=== PATIENT | female | born 1945 | race Caucasian/White ===

== ENCOUNTER 2025-01-18 15:32 | Inpatient (IN) | payer OTHER ==
[2025-01-18 16:57] LABS: ABSOLUTE IMMATURE GRANULOCYTES 0.04 x10^3/uL (0.0-0.031); BASOPHILS # 0.07 x10^3/uL (0.01-0.08); EOSINOPHIL % 7.3 % (0.7-5.8); EOSINOPHILS # 0.68 x10^3/uL (0.04-0.36); MCHC 31.6 g/dl (32.2-35.5); MEAN CELL VOLUME 88.1 fl (79.4-94.8); MEAN PLT VOLUME 10.9 fl (9.4-12.3); MONOCYTE # 0.48 x10^3/uL (0.24-0.86); MONOCYTE % 5.2 % (4.7-12.5); RDW 12.8 % (12.4-16.6)
[2025-01-18 17:17] LABS: GLUCOSE,RANDOM 85 mg/dL (74-106); TOT PROT 8.1 g/dl (6.4-8.2)
[2025-01-18 17:18] LABS: CO2 24 mmol/L (21-32)
[2025-01-18 17:20] LABS: ALK PHOS 61 U/L (40-150)
[2025-01-18 17:23] LABS: CREATININE 0.49 mg/dL (0.55-1.3); SGOT/AST 43 U/L (5-34)
[2025-01-18] MEDS ORDERED: PIPERACILLIN/TAZOB 3.375 GM 3.375 GM/50 ML BAG IVPB ONE (17:34)
[2025-01-18] MEDS: PIPERACILLIN/TAZOB 3.375 GM 3.375 GM in DEXTROSE 5%-WATER - 50 ML IVPB ONE (17:37)
[2025-01-18 17:40] LABS: SGPT/ALT < 6 U/L (0-55)
[2025-01-18 17:43] LABS: HCV DIAGNOSTIC IN-HOUSE W/RFLX NON-REACTIVE (NONREACTIVE)
[2025-01-18 17:44] LABS: HIV INTERPRETATION NEGATIVE (NEGATIVE)
[2025-01-18] MEDS ORDERED: VANCOMYCIN 1 GM PREMIX (F) 1 GM/200 ML BAG ONE (18:11)
[2025-01-18] MEDS: VANCOMYCIN 1,000 MG in DEXTROSE 5%-WATER - 250 ML IVPB ONE (18:12)
[2025-01-19 00:25] VITALS: BMI 29.5
[2025-01-19] MEDS: PIPERACILLIN/TAZOB 3.375 GM 3.375 GM in DEXTROSE 5%-WATER - 50 ML IVPB SCH (01:12)
[2025-01-19] MEDS: VANCOMYCIN/WATER 1250 MG 1,250 MG/250 ML BAG IVPB SCH (06:30)
[2025-01-19 07:22] LABS: ABSOLUTE IMMATURE GRANULOCYTES 0.02 x10^3/uL (0.0-0.031); BASOPHILS # 0.06 x10^3/uL (0.01-0.08); EOSINOPHIL % 8.9 % (0.7-5.8); EOSINOPHILS # 0.61 x10^3/uL (0.04-0.36); MCHC 31.3 g/dl (32.2-35.5); MEAN CELL VOLUME 88.0 fl (79.4-94.8); MEAN PLT VOLUME 10.7 fl (9.4-12.3); MONOCYTE # 0.44 x10^3/uL (0.24-0.86); MONOCYTE % 6.5 % (4.7-12.5); RDW 12.4 % (12.4-16.6)
[2025-01-19 07:38] LABS: GLUCOSE,RANDOM 81.0 mg/dL (74-106)
[2025-01-19 07:39] LABS: CO2 27.0 mmol/L (21-32)
[2025-01-19 07:44] LABS: CREATININE 0.61 mg/dL (0.55-1.3)
[2025-01-19 09:42] LABS: ERYTHROCYTE SEDIMENTATION RATE 32 mm/hr (0-30)
[2025-01-19] MEDS: ENOXAPARIN NA (PORCINE) 40 MG/0.4 ML DISP.SYRIN SQ SCH (10:14)
[2025-01-19] MEDS: CALCIUM ACETATE/AL SULFATE TOP 1.9 GM/PACKET PACKET TP SCH ×2 (12:27→18:04)
[2025-01-19 12:59] LABS: N-TERMINAL BNP 100.9 pg/mL (0-299.9)
[2025-01-20] MEDS: AMPICILLIN NA/SULBACTAM NA 3 GM in SODIUM CHLORIDE 100 ML IVPB SCH (01:08)
[2025-01-20] MEDS: LORazepam 2 MG/ML SDV VIAL IVPUSH ONE (01:09)
[2025-01-20] MEDS ORDERED: PIPERACILLIN/TAZOB 3.375 GM 3.375 GM in DEXTROSE 5%-WATER - 50 ML IVPB SCH (02:00)
[2025-01-20] MEDS ORDERED: VANCOMYCIN/WATER FOR INJ (PEG) 1,000 MG/200 ML BAG IVPB SCH (06:00)
[2025-01-20 07:59] LABS: ABSOLUTE IMMATURE GRANULOCYTES 0.03 x10^3/uL (0.0-0.031); BASOPHILS # 0.05 x10^3/uL (0.01-0.08); EOSINOPHIL % 10.4 % (0.7-5.8); EOSINOPHILS # 0.75 x10^3/uL (0.04-0.36); MCHC 30.7 g/dl (32.2-35.5); MEAN CELL VOLUME 89.3 fl (79.4-94.8); MEAN PLT VOLUME 11.2 fl (9.4-12.3); MONOCYTE # 0.51 x10^3/uL (0.24-0.86); MONOCYTE % 7.1 % (4.7-12.5); RDW 12.5 % (12.4-16.6)
[2025-01-21 07:00] LABS: ABSOLUTE IMMATURE GRANULOCYTES 0.03 x10^3/uL (0.0-0.031); EOSINOPHIL % 13.1 % (0.7-5.8)
[2025-01-21 07:10] LABS: BASOPHILS # 0.06 x10^3/uL (0.01-0.08); EOSINOPHILS # 0.77 x10^3/uL (0.04-0.36); MCHC 31.0 g/dl (32.2-35.5); MEAN CELL VOLUME 88.8 fl (79.4-94.8); MEAN PLT VOLUME 10.2 fl (9.4-12.3); MONOCYTE # 0.43 x10^3/uL (0.24-0.86); MONOCYTE % 7.3 % (4.7-12.5); RDW 12.7 % (12.4-16.6)
[2025-01-21 07:11] LABS: GLUCOSE,RANDOM 90 mg/dL (74-106); TOT PROT 6.1 g/dl (6.4-8.2)
[2025-01-21 07:12] LABS: CO2 26 mmol/L (21-32)
[2025-01-21 07:14] LABS: ALK PHOS 52 U/L (40-150)
[2025-01-21 07:17] LABS: CREATININE 0.60 mg/dL (0.55-1.3); SGOT/AST 13 U/L (5-34); SGPT/ALT < 6 U/L (0-55)
[2025-01-21] MEDS: MINERAL OIL/PET HY-PHL TOPICAL OINTMENT 454 GM JAR TP SCH (10:31)
[2025-01-22] MEDS: PIPERACILLIN/TAZOB 3.375 GM 3.375 GM in DEXTROSE 5%-WATER - 50 ML IVPB SCH (11:21)
[2025-01-22] MEDS: DOXYCYCLINE HYCLATE 100 MG TABLET PO SCH (17:05)
[2025-01-23 08:09] LABS: ABSOLUTE IMMATURE GRANULOCYTES 0.02 x10^3/uL (0.0-0.031); BASOPHILS # 0.05 x10^3/uL (0.01-0.08); EOSINOPHIL % 7.5 % (0.7-5.8); EOSINOPHILS # 0.44 x10^3/uL (0.04-0.36); MCHC 31.9 g/dl (32.2-35.5); MEAN CELL VOLUME 85.9 fl (79.4-94.8); MEAN PLT VOLUME 10.5 fl (9.4-12.3); MONOCYTE # 0.40 x10^3/uL (0.24-0.86); MONOCYTE % 6.8 % (4.7-12.5); RDW 12.3 % (12.4-16.6)
[2025-01-23 08:23] LABS: GLUCOSE,RANDOM 90 mg/dL (74-106); TOT PROT 6.5 g/dl (6.4-8.2)
[2025-01-23 08:24] LABS: CO2 25 mmol/L (21-32)
[2025-01-23 08:26] LABS: ALK PHOS 56 U/L (40-150)
[2025-01-23 08:29] LABS: CREATININE 0.57 mg/dL (0.55-1.3); SGOT/AST 20 U/L (5-34)
[2025-01-23 09:11] LABS: SGPT/ALT < 6 U/L (0-55)
[2025-01-24] MEDS: CALCIUM ACETATE/AL SULFATE TOP 1.9 GM/PACKET PACKET TP SCH (05:12)
[2025-01-24 08:42] LABS: ABSOLUTE IMMATURE GRANULOCYTES 0.05 x10^3/uL (0.0-0.031); BASOPHILS # 0.07 x10^3/uL (0.01-0.08); EOSINOPHIL % 4.8 % (0.7-5.8); EOSINOPHILS # 0.29 x10^3/uL (0.04-0.36); MCHC 31.7 g/dl (32.2-35.5); MEAN CELL VOLUME 86.3 fl (79.4-94.8); MEAN PLT VOLUME 10.2 fl (9.4-12.3); MONOCYTE # 0.47 x10^3/uL (0.24-0.86); MONOCYTE % 7.8 % (4.7-12.5); RDW 12.5 % (12.4-16.6)
[2025-01-24 08:58] LABS: GLUCOSE,RANDOM 94 mg/dL (74-106)
[2025-01-24 08:59] LABS: TOT PROT 6.4 g/dl (6.4-8.2)
[2025-01-24 09:00] LABS: CO2 26 mmol/L (21-32)
[2025-01-24 09:01] LABS: ALK PHOS 53 U/L (40-150)
[2025-01-24 09:04] LABS: CREATININE 0.67 mg/dL (0.55-1.3); SGOT/AST 22 U/L (5-34); SGPT/ALT < 6 U/L (0-55)
[2025-01-24] MEDS: SERTRALINE HCL 25 MG TABLET (FP) PO SCH (09:54)
[2025-01-24] MEDS: DONEPEZIL HCL 5 MG TABLET (FP) PO SCH (21:28)
[2025-01-25 07:53] VITALS: PULSE 56; RESP 18; TEMP 97.5
[2025-01-25 09:54] LABS: ABSOLUTE IMMATURE GRANULOCYTES 0.05 x10^3/uL (0.0-0.031); BASOPHILS # 0.08 x10^3/uL (0.01-0.08); EOSINOPHIL % 4.8 % (0.7-5.8); EOSINOPHILS # 0.31 x10^3/uL (0.04-0.36); MCHC 31.6 g/dl (32.2-35.5); MEAN CELL VOLUME 86.8 fl (79.4-94.8); MEAN PLT VOLUME 10.6 fl (9.4-12.3); MONOCYTE # 0.48 x10^3/uL (0.24-0.86); MONOCYTE % 7.4 % (4.7-12.5); RDW 12.7 % (12.4-16.6)
[2025-01-25 10:42] LABS: GLUCOSE,RANDOM 86.0 mg/dL (74-106)
[2025-01-25 10:43] LABS: TOT PROT 6.5 g/dl (6.4-8.2)
[2025-01-25 10:44] LABS: CO2 26.0 mmol/L (21-32)
[2025-01-25 10:45] LABS: ALK PHOS 54.0 U/L (40-150)
[2025-01-25 10:48] LABS: CREATININE 0.68 mg/dL (0.55-1.3); SGOT/AST 21.0 U/L (5-34); SGPT/ALT 6.0 U/L (0-55)
[2025-01-25 17:09] VITALS: BP 118/68
[2025-01-26] MEDS ORDERED: AMINO ACIDS/PROTEIN HYDROLYS 30 ML LIQUID.PKT PO SCH (08:00)
[2025-01-26] MEDS ORDERED: MULTIVITAMINS (DAILY MVI) TABLET (FP) PO SCH (10:00)
[2025-01-26] MEDS ORDERED: ASCORBIC ACID 500 MG TABLET (FP) PO SCH (10:00)
== END 2025-01-25 19:12 | DRG 603 ==
LOC: JER 15:32 → JERBED 20:56 → OBSVTOIN 20:57 → INTOOBSV 20:57 → J8W 22:49 → OBSVTOIN 01-21 13:22 → J8W 01-21 14:57
PROVIDERS: ADMIT Internal Medicine; ATTEND Internal Medicine
DX: L03.115 Cellulitis of right lower limb (principal); F03.918 Unspecified dementia, unspecified severity, with other behavioral disturbance; L97.919 Non-pressure chronic ulcer of unspecified part of right lower leg with unspecified severity; I73.9 Peripheral vascular disease, unspecified; L89.151 Pressure ulcer of sacral region, stage 1; F32.A Depression, unspecified; I87.8 Other specified disorders of veins
CPT/HCPCS: 36415; 70450-TC; 73590-TC-RT-FY; 73630-TC-RT-FY; 80048; 80053; 83880; 84132; 85025; 85651; 86140; 86803; 87070; 87077; 87205; 87389; 93005; 93010; 97116-GP; 97161-GP; 99285-25; G0378